=== PATIENT | female | born 1965 | race African-American/Black ===

== ENCOUNTER 2018-02-27 10:36 | Emergency (ER) | payer OTHER ==
[~2018-02-27] VITALS: Ht 170.2 cm; Wt 120.0 kg
[2018-02-27 11:00] VITALS: BP 106/74
== END 2018-02-27 14:13 | disposition home or self-care (01) ==
LOC: ER 10:36
DX: M62.838 Other muscle spasm (principal); M17.9 Osteoarthritis of knee, unspecified; E78.00 Pure hypercholesterolemia, unspecified; E11.9 Type 2 diabetes mellitus without complications; F17.200 Nicotine dependence, unspecified, uncomplicated; F12.10 Cannabis abuse, uncomplicated
CPT/HCPCS: 73562; 99284